=== PATIENT | female | born 1955 | race Caucasian/White ===

== ENCOUNTER 2025-04-06 07:40 | Inpatient (IN) | payer MEDICARE, OTHER ==
[~2025-04-06] VITALS: Ht 157.5 cm; Wt 59.4 kg
[2025-04-06] VITALS (7 sets, daily range): BP systolic 118–152; BP diastolic 71–80; TEMP 97.3–98.1; O2SAT 96–98
[2025-04-06] MEDS ORDERED: OXYMETAZOLINE HCL NASAL SPRAY 30 ML BOTTLE NS ONE (09:42)
[2025-04-06] MEDS ORDERED: dexaMETHasone SOD PHOSPHATE 2 ML ONE (09:42)
[2025-04-06] MEDS ORDERED: LIDOCAINE 2%-EPI 1:100,000 30 ML VIAL ONE (09:42)
[2025-04-06] MEDS ORDERED: VANCOMYCIN 1 GM VIAL ONE (09:43)
[2025-04-06] MEDS ORDERED: FENTANYL PF 100MCG/2ML AMPUL ONE (11:29)
[2025-04-06] MEDS: IV NS 0.9% 1,000 ML IV PRN (12:15)
[2025-04-06] MEDS ORDERED: ONDANSETRON HCL/PF 4 MG/2 ML VIAL IV PRN (12:30)
[2025-04-06] MEDS ORDERED: HYDROMORPHONE 1 MG/1 ML DISP.SYRIN IV PRN (12:30)
[2025-04-06] MEDS ORDERED: ACETAMINOPHEN 325 MG TABLET PO PRN (12:30)
[2025-04-06] MEDS: HYDROCODONE/APAP 5/325MG TABLET PO PRN (21:02)
[2025-04-06] MEDS: VANCOMYCIN 1 GM in IV D5W 250ml IV SCH (21:13)
[2025-04-07] MEDS: PANTOPRAZOLE 40 MG TABLET.DR PO SCH (07:20)
[2025-04-07 07:31] LABS: PLATELET COUNT (AUTO) 314 K/uL (150-450); RED BLOOD CELL COUNT(AUTO) 4.48 MIL/uL (4.0-5.2); RED CELL DISTRIBUTION WIDTH 13.1 % (11.5-15.0); WHITE BLOOD COUNT (AUTO) 11.3 K/uL (4.3-11.0)
[2025-04-07 07:55] LABS: CALCIUM, SERUM 9.3 mg/dL (8.5-10.1); CREATININE 0.5 mg/dL (0.6-1.3); PHOSPHORUS 3.7 mg/dL (2.5-4.9); SODIUM SERUM 141.0 mmol/L (136-145); UREA NITROGEN, BLOOD 11.0 mg/dL (7-18)
[2025-04-07 07:57] VITALS: BP 122/58; TEMP 97.5; O2SAT 95
[2025-04-07 08:24] VITALS: BP 122/58; TEMP 97.5; O2SAT 95
[2025-04-07] MEDS ORDERED: HYDR-3972 PO (10:56)
== END 2025-04-07 13:00 | disposition home or self-care (01) | DRG 141 ==
LOC: DS 07:40 → MED 10:36
PROVIDERS: ADMIT Nurse Practitioner Family; ATTEND Nurse Practitioner Family
PROC: 0NUR0JZ Supplement Maxilla with Synthetic Substitute, Open Approach (ICD-10-PCS; principal; 2025-04-06)
PROC: 0NSR04Z Reposition Maxilla with Internal Fixation Device, Open Approach (ICD-10-PCS; 2025-04-06)
PROC: 0CBH0ZZ Excision of Left Submaxillary Gland, Open Approach (ICD-10-PCS; 2025-04-06)
PROC: 0NBR0ZZ Excision of Maxilla, Open Approach (ICD-10-PCS; 2025-04-06)
PROC: 0NUR07Z Supplement Maxilla with Autologous Tissue Substitute, Open Approach (ICD-10-PCS; 2025-04-06)
DX: S02.40DB Maxillary fracture, left side, initial encounter for open fracture (principal); C85.9A Non-Hodgkin lymphoma, unspecified, in remission; M87.9 Osteonecrosis, unspecified; S02.40CB Maxillary fracture, right side, initial encounter for open fracture; M27.2 Inflammatory conditions of jaws; E78.5 Hyperlipidemia, unspecified; I10 Essential (primary) hypertension; I35.1 Nonrheumatic aortic (valve) insufficiency; Z79.899 Other long term (current) drug therapy; D11.9 Benign neoplasm of major salivary gland, unspecified; X58.XXXA Exposure to other specified factors, initial encounter; Y92.9 Unspecified place or not applicable
CPT/HCPCS: 36415; 80048-TC; 83735-TC; 84100-TC; 85025-TC; A4217; A4223; A4338; C1713; G0378; J0461; J0690; J1100; J2704; J3010; J3373; J3490; J7030; J7050; J7060